=== PATIENT | female | born 1975 | race Caucasian/White ===

== ENCOUNTER 2019-06-06 16:40 | Emergency (ER) | payer MEDICAID ==
[~2019-06-06] VITALS: Ht 172.7 cm; Wt 63.6 kg
[2019-06-06 17:00] VITALS: Ht 172.7 cm; Wt 63.6 kg
[2019-06-06] MEDS ORDERED: TORADOL10 MG PO (18:48)
[2019-06-06] MEDS ORDERED: SKELAXIN800 MG PO (19:37)
[2019-06-06 19:58] VITALS: BP 154/94
== END 2019-06-06 19:59 | disposition home or self-care (01) ==
LOC: D.ER 16:40
DX: S29.012A Strain of muscle and tendon of back wall of thorax, initial encounter (principal); V49.50XA Passenger injured in collision with unspecified motor vehicles in traffic accident, initial encounter; Y93.9 Activity, unspecified; Y92.9 Unspecified place or not applicable

== ENCOUNTER → 2020-04-16 12:05 | Outpatient (CLI) | payer MEDICAID ==
[2019-06-06 17:00] VITALS: BMI 21.3
[~2020-04-16 12:05] MED LIST: SKELAXIN800 MG PO; TORADOL10 MG PO
== END | disposition home or self-care (01) ==
LOC: D.HCCECHO 04-14 13:30
PROVIDERS: ATTEND Internal Medicine Cardiovascular Disease
DX: I10 Essential (primary) hypertension (principal)

== ENCOUNTER 2020-12-25 14:51 | Inpatient (IN) | payer MEDICAID ==
[~2020-12-25] VITALS: Ht 172.7 cm; Wt 73.9 kg
[2020-12-25 15:48] LABS: BASOPHILS 0.7 % (0-2); EOSINOPHILS 0.5 % (0-7); HEMATOCRIT 37.1 % (36.0-48.0); HEMOGLOBIN 12.6 g/dL (12-16); LYMPHOCYTES 19.2 % (15-50); MCH 42.4 pg (26.0-34.0); MCHC 33.9 g/dL (31.0-37.0); MCV 125.2 fL (80.0-100.0); MEAN PLATELET VOLUME 8.1 fL (7.4-10.4); MONOCYTES 3.1 % (2-11); NEUTROPHILS 76.5 % (40-80); PLATELET COUNT 482 10x3/uL (130-400); RBC 2.97 10x6/uL (4.00-5.40); RDW 22.8 % (11.5-14.5); WBC 10.3 10x3/uL (4.8-10.8)
[2020-12-25 16:00] LABS: ALKALINE PHOSPHATASE 156 U/L (30-120); ALT (SGPT) 21 U/L (10-68); AMYLASE - SERUM 39 U/L (25-115); CALC OSMOLALITY 276 mosm/kg (275-300); CARBON DIOXIDE 24.2 mmol/L (21.0-32.0); CHLORIDE - SERUM 101 mmol/L (98-107); CREATININE - SERUM 0.7 mg/dL (0.6-1.3); GLUCOSE 115 mg/dL (74-106); LIPASE 73 U/L (73-393); PROTEIN - SERUM 6.8 g/dL (6.4-8.2); SODIUM 140 mmol/L (136-145); UREA NITROGEN 4 mg/dL (7-18); eGFR NON AFRICAN AMERICAN > 90 mL/min (90-120)
[2020-12-25 16:02] LABS: TROPONIN-I < 0.017 ng/mL (0.000-0.060)
[2020-12-25 16:03] LABS: POTASSIUM - SERUM 2.8 mmol/L (3.5-5.1)
--- NOTE | 2020-12-25 16:03 | NUR ---
LAB CALLED WITH CRITICAL POTASSIUM 2.8 , NOTIFIED
[2020-12-25 22:52] VITALS: BP 126/80
--- NOTE | 2020-12-25 23:15 | NUR ---
PT ARRIVED ON UNIT VIA STRETCHER, ESCORTED BY ER NURSE AND PT'S DAUGHTER. POSITIONED IN BED FOR COMFORT. ORIENTED TO ROOM AND CALL LIGHT. IV FLUIDS INFUSING ON ARRIVAL: D5 1/2 NS @ 100, AND ZOFRAN @ 4.7 ML/HR. WILL MONITOR FOR NEEDS.
--- NOTE | 2020-12-25 23:52 | NUR ---
COLLECTED URINE FOR ORDERED STUDIES AND DELIVERED TO LAB.
[2020-12-25 23:58] VITALS: BP 125/83; BMI 24.8
[2020-12-26 00:09] LABS: HCG URINE NEGATIVE (NEGATIVE)
--- NOTE | 2020-12-26 00:11 | NUR ---
ADMISSION ASSESSMENT AND HISTORY COMPLETE.
[2020-12-26 00:12] LABS: BILIRUBIN NEGATIVE (NEGATIVE); KETONE 1+ mg/dL (< 1+); NITRITE POSITIVE (NEGATIVE); PH 7.5 (5.0-8.0); UROBILINOGEN NORMAL mg/dL (< 2)
[2020-12-26 00:13] LABS: BACTERIA MANY HPF (<MOD); SQUAMOUS EPITHELIAL 7 HPF (0-4); WHITE CELLS - URINE 6 HPF (0-4)
--- NOTE | 2020-12-26 00:30 | NUR ---
GÉNESIS SUTHERLAND APN TO GIVE UA RESULTS. HE IS ORDERING A CULTURE AND ABX.
[2020-12-26 01:30] LABS: CKMB 13.2 U/L (0.0-3.6); CREATINE KINASE 432 UL (21-215)
[2020-12-26 01:35] LABS: TROPONIN-I < 0.017 ng/mL (0.000-0.060)
[2020-12-26 06:33] VITALS: BP 128/76
[2020-12-26 06:38] LABS: BASOPHILS 0 % (0-2); EOSINOPHILS 0.9 % (0-7); IMMATURE GRANULOCYTES 0.1 % (0-5); LYMPHOCYTE ABS# 2.85 10x3/uL (1.18-3.74); LYMPHOCYTES 36.9 % (15-50); MCH 41.8 pg (26.0-34.0); MCHC 34.4 g/dL (31.0-37.0); MEAN PLATELET VOLUME 10.1 fL (7.4-10.4); MONOCYTES 3.9 % (2-11); NEUTROPHILS 58.2 % (40-80); PLATELET COUNT 428 10x3/uL (130-400); RBC 2.39 10x6/uL (4.00-5.40); RDW 19.4 % (11.5-14.5)
[2020-12-26 06:40] LABS: HEMATOCRIT 29.1 % (36.0-48.0); MCV 121.8 fL (80.0-100.0); WBC 7.7 10x3/uL (4.8-10.8)
[2020-12-26 07:07] LABS: CREATINE KINASE 652 UL (21-215); TROPONIN-I < 0.017 ng/mL (0.000-0.060)
[2020-12-26 07:20] LABS: ALKALINE PHOSPHATASE 118 U/L (30-120); ALT (SGPT) 19 U/L (10-68); BILIRUBIN - TOTAL 0.29 mg/dL (0.2-1.3); CALC OSMOLALITY 277 mosm/kg (275-300); CALCIUM 7.9 mg/dL (8.5-10.1); CHLORIDE - SERUM 106 mmol/L (98-107); CREATININE - SERUM 0.7 mg/dL (0.6-1.3); GLUCOSE 101 mg/dL (74-106); MAGNESIUM - SERUM 1.8 mg/dL (1.8-2.4); PHOSPHOROUS 3.2 mg/dL (2.5-4.9); PROTEIN - SERUM 5.5 g/dL (6.4-8.2); SODIUM 141 mmol/L (136-145); THYROID STIMULATING HORMONE 1.57 uIU/mL (0.36-3.74); UREA NITROGEN 4 mg/dL (7-18); eGFR NON AFRICAN AMERICAN > 90 mL/min (90-120)
[2020-12-26 07:50] LABS: CARBON DIOXIDE 26.3 mmol/L (21.0-32.0)
[2020-12-26 07:52] LABS: ALBUMIN 2.6 g/dL (3.4-5.0)
[2020-12-26 09:05] VITALS: BP 130/78
--- NOTE | 2020-12-26 09:56 | NUR ---
RIGHT AC IV INFILTRATED. DID NOT WANT IT PULLED, UNABLE TO START NEW IV AFTER 2 ATTEMPTS. DOES NOT WANT ANOTHER PERSON TO TRY.. OTHER THAN THAT RESTING COMFORTABLY IN BED. DENIES FURTHER NEEDS AT THIS TIME. WILL CONTINUE POC. ASSESSMENT PERFORMED
--- NOTE | 2020-12-26 11:21 | NUR ---
FLUSHED IV IN RIGHT AC, IS STILL WORKING. HOOKED FLUIDS AND ZOFRAN DRIP BACK UP. VOMITED WHILE IN ROOM. WILL TREAT POTASSIUM PER PROTOCOL AFTER VOMITING SPELL HAS PASSED. VISITORS AT BEDSIDE. DENIES ANY NEEDS AT THIS TIME. WILL CONITNUE POC.
[2020-12-26 12:08] VITALS: BP 127/86
[2020-12-26 12:25] LABS: CKMB 30.6 U/L (0.0-3.6); CREATINE KINASE 823 UL (21-215); TROPONIN-I < 0.017 ng/mL (0.000-0.060)
--- NOTE | 2020-12-26 15:42 | NUR ---
I have reviewed this patient and I concur with the Shift Assessment completed by the Licensed Practical Nurse today this shift.
--- NOTE | 2020-12-26 16:29 | NUR ---
REPLETED POTASSIUM AGAIN PER PROTOCOL. UPRIGHT IN BED. REPLACED FLUIDS AND ZOFRAN DRIP. DENIES NEEDS. WILL CONTINUE POC.
[2020-12-26 18:10] VITALS: BP 132/69
--- NOTE | 2020-12-26 19:00 | NUR ---
BEDSIDE REPORT RECEIVED AND CARE OF PT ASSUMED. PT SITTING UP IN BED VISITING WITH FAMILY MEMBER. IV TO RIGHT AC PATENT WITH D5 1/2NS INFUSING AT 100 ML/HR, AND ZOFRAN INFUSING AT 4.7 ML/HR. TELEMETRY IN PLACE AND READING SR AT THIS ASSESSMENT. WILL MONITOR FOR NEEDS.
--- NOTE | 2020-12-26 19:47 | NUR ---
GAVE IVP PROTONIX PER ORDER. PT TEACHING ON NEW MEDICATION.
[2020-12-26 20:00] VITALS: BP 134/82
--- NOTE | 2020-12-26 20:30 | NUR ---
POTASSIUM LEVEL UP TO 3.9 WITH LAST LAB DRAW. WILL RE-CHECK WITH AM LABS.
--- NOTE | 2020-12-26 22:36 | NUR ---
GAVE MORPHINE 2 MG IVP PER PRN ORDER, PER PT REQUEST FOR ACHING ABDOMINAL AND BACK PAIN AT LEVEL 7/10. WILL MONITOR FOR EFFECTIVENESS.
[2020-12-27] VITALS: BP 127/88
[2020-12-27 04:00] VITALS: BP 120/78
[2020-12-27 07:17] LABS: BASOPHILS 0.5 % (0-2); EOSINOPHILS 1.5 % (0-7); HEMATOCRIT 27.7 % (36.0-48.0); HEMOGLOBIN 9.6 g/dL (12-16); LYMPHOCYTES 34.4 % (15-50); MCHC 34.8 g/dL (31.0-37.0); MEAN PLATELET VOLUME 8.1 fL (7.4-10.4); MONOCYTES 3.9 % (2-11); NEUTROPHILS 59.7 % (40-80); RBC 2.14 10x6/uL (4.00-5.40); RDW 22.1 % (11.5-14.5); WBC 6.3 10x3/uL (4.8-10.8)
[2020-12-27 07:26] LABS: MCV 129.3 fL (80.0-100.0); PLATELET COUNT 342 10x3/uL (130-400)
[2020-12-27 07:48] LABS: ALBUMIN 2.4 g/dL (3.4-5.0); ALKALINE PHOSPHATASE 111 U/L (30-120); BILIRUBIN - TOTAL 0.28 mg/dL (0.2-1.3); CALC OSMOLALITY 277 mosm/kg (275-300); CARBON DIOXIDE 25.2 mmol/L (21.0-32.0); CHLORIDE - SERUM 108 mmol/L (98-107); CREATININE - SERUM 0.6 mg/dL (0.6-1.3); GLUCOSE 100 mg/dL (74-106); MAGNESIUM - SERUM 1.8 mg/dL (1.8-2.4); PHOSPHOROUS 3.2 mg/dL (2.5-4.9); PROTEIN - SERUM 5.3 g/dL (6.4-8.2); SODIUM 141 mmol/L (136-145); UREA NITROGEN 3 mg/dL (7-18); eGFR NON AFRICAN AMERICAN > 90 mL/min (90-120)
[2020-12-27 07:50] LABS: ALT (SGPT) 25 U/L (10-68); CREATINE KINASE 513 UL (21-215); POTASSIUM - SERUM 3.3 mmol/L (3.5-5.1)
[2020-12-27 07:51] LABS: CKMB 14.2 U/L (0.0-3.6)
[2020-12-27 09:09] VITALS: BP 137/76
--- NOTE | 2020-12-27 11:42 | NUR ---
ASSESSMENT PER FLOW SHEET. PATIENT IS WITHOUT DISTRESS.MONITOR FOR NEEDS.CALL LIGHT IN REACH
[2020-12-27 13:30] VITALS: BP 141/79
[2020-12-27 14:17] VITALS: Ht 172.7 cm; Wt 73.9 kg
--- NOTE | 2020-12-27 14:55 | MORECARE ---
CASE MANAGEMENT DISCHARGE SUMMARY PATIENT: JILLIAN LOCKE UNIT: [id number] ADM DATE: 12/25/20 AGE: 45 : 77 SEX: F ROOM/BED: D.2223 AUTHOR: NADEEM,DOC PHYSICIAN: REFERRING PHYSICIAN: AUDREY VINCENT MD DATE OF SERVICE: 12/27/20 Case Management Discharge Planning Summary COMMENTS ENTERED DATE: 12/27/20 14:48 CT COMMENT TYPE: Discharge Planning REVIEWER: Talia Tellez CM met with patient at bedside after obtaining verbal consent. CM discussed availability / needs of home health, REHAB and medical equipment. Patient denies need for any of those services.States Dr. Regan is her pcp and she uses [facility]. Patient hopes to discharge to home today. Family is at bedside. CM to follow and assist as needed. DCP REVIEW SUMMARY ANTICIPATED D/C DATE: EXPECTED LOS : CASE STATUS: DCP Initiated INITIAL REVIEW: 12/25/2020 INITIAL REVIEWER: Talia Tellez FINAL DISCHARGE DISPOSITION: : FINAL REVIEWER: FINAL REVIEW DATE: DCP Focus Questions & Answers DCP Screen QUESTION: ANSWER High Risk Factors: : Poor health literacy DCP Evaluation QUESTION: ANSWER Patient's ability to cope with chronic illness : d. No chronic illness Would patient like to participate in any Care Coordination programs (if applicable): : Not applicable Mental health screen: : No mental health history DCP Re-evaluation QUESTION: ANSWER Would patient like to participate in any Care Coordination programs (if applicable): : Not applicable PATIENT: JILLIAN LOCKE ENCOUNTER: [id number] MEDICAL RECORD#: [id number] ADMISSION DATE: 12/25/2020 DISCHARGE DATE: ATTENDING MD: AUDREY VAZQUEZ : AGE: 45 MARITAL STATUS: M DC PLAN ID: [id number] FACILITY: [facility] PRINTED ON: 12/27/20 14:55 CT All edits/amendments must be made on the electronic document DICTATION DATE: 12/27/201454 LAP WINDER: JANENE 12/27/20 145 RPT#: [id number] DC DATE: STATUS: ADM IN [facility] [address] [place] [address] END OF REPORT
[2020-12-27 16:00] LABS: UDS - AMPHET NEGATIVE QUAL (NEGATIVE); UDS - BARB NEGATIVE QUAL (NEGATIVE); UDS - BENZO NEGATIVE QUAL (NEGATIVE); UDS - COCAINE NEGATIVE QUAL (NEGATIVE); UDS - OPIATE NEGATIVE QUAL (NEGATIVE); UDS - PCP NEGATIVE QUAL (NEGATIVE); UDS - THC POSITIVE QUAL (NEGATIVE)
[2020-12-27] MEDS ORDERED: LEVOFLOXACIN500 MG PO (16:16)
--- NOTE | 2020-12-27 16:43 | NUR ---
DISCHARGE INSTRUCTIONS,STATES UNDERSTANDING. IV DCD WITH CATH TIP INTACT.
--- NOTE | 2020-12-27 16:53 | NUR ---
LEFT UNIT VIA WHEELCHAIR FOR TRANSPORT HOME
--- NOTE | 2020-12-27 16:54 | MORECARE ---
CASE MANAGEMENT DISCHARGE SUMMARY PATIENT: JILLIAN LOCKE UNIT: [id number] ADM DATE: 12/25/20 AGE: 45 : 77 SEX: F ROOM/BED: D.2223 AUTHOR: NADEEM,DOC PHYSICIAN: REFERRING PHYSICIAN: AUDREY VINCENT MD DATE OF SERVICE: 12/27/20 Case Management Discharge Planning Summary COMMENTS ENTERED DATE: 12/27/20 14:48 CT COMMENT TYPE: Discharge Planning REVIEWER: Talia Tellez CM met with patient at bedside after obtaining verbal consent. CM discussed availability / needs of home health, REHAB and medical equipment. Patient denies need for any of those services.States Dr. Regan is her pcp and she uses [facility]. Patient hopes to discharge to home today. Family is at bedside. CM to follow and assist as needed. DCP REVIEW SUMMARY ANTICIPATED D/C DATE: EXPECTED LOS : CASE STATUS: DCP Initiated INITIAL REVIEW: 12/25/2020 INITIAL REVIEWER: Talia Tellez FINAL DISCHARGE DISPOSITION: : FINAL REVIEWER: FINAL REVIEW DATE: DCP Focus Questions & Answers DCP Screen QUESTION: ANSWER High Risk Factors: : Poor health literacy DCP Evaluation QUESTION: ANSWER Patient's ability to cope with chronic illness : d. No chronic illness Would patient like to participate in any Care Coordination programs (if applicable): : Not applicable Mental health screen: : No mental health history DCP Re-evaluation QUESTION: ANSWER Would patient like to participate in any Care Coordination programs (if applicable): : Not applicable PATIENT: JILLIAN LOCKE ENCOUNTER: [id number] MEDICAL RECORD#: [id number] ADMISSION DATE: 12/25/2020 DISCHARGE DATE: 12/27/2020 ATTENDING MD: AUDREY VAZQUEZ : AGE: 45 MARITAL STATUS: M DC PLAN ID: [id number] FACILITY: [facility] PRINTED ON: 12/27/20 16:54 CT All edits/amendments must be made on the electronic document DICTATION DATE: 12/27/201653 MANAGER OF SUPPLY CHAIN: JANENE 12/27/201653 RPT#: [id number] DC DATE:12/27/20 STATUS: DIS IN [place] [id number] [place] [address] END OF REPORT
--- NOTE | 2020-12-28 15:35 | MORECARE ---
CASE MANAGEMENT DISCHARGE SUMMARY PATIENT: JILLIAN LOCKE UNIT: [id number] ADM DATE: 12/25/20 AGE: 45 : 77 SEX: F ROOM/BED: D.2223 AUTHOR: NADEEM,DOC PHYSICIAN: REFERRING PHYSICIAN: AUDREY VINCENT MD DATE OF SERVICE: 12/28/20 Case Management Discharge Planning Summary COMMENTS ENTERED DATE: 12/27/20 14:48 CT COMMENT TYPE: Discharge Planning REVIEWER: Talia Tellez CM met with patient at bedside after obtaining verbal consent. CM discussed availability / needs of home health, REHAB and medical equipment. Patient denies need for any of those services.States Dr. Regan is her pcp and she uses [facility]. Patient hopes to discharge to home today. Family is at bedside. CM to follow and assist as needed. DCP REVIEW SUMMARY ANTICIPATED D/C DATE: EXPECTED LOS : CASE STATUS: DCP Initiated INITIAL REVIEW: 12/25/2020 INITIAL REVIEWER: Talia Tellez FINAL DISCHARGE DISPOSITION: : FINAL REVIEWER: FINAL REVIEW DATE: DCP Focus Questions & Answers DCP Screen QUESTION: ANSWER High Risk Factors: : Poor health literacy DCP Evaluation QUESTION: ANSWER Patient's ability to cope with chronic illness : d. No chronic illness Would patient like to participate in any Care Coordination programs (if applicable): : Not applicable Mental health screen: : No mental health history DCP Re-evaluation QUESTION: ANSWER Would patient like to participate in any Care Coordination programs (if applicable): : Not applicable PATIENT: JILLIAN LOCKE ENCOUNTER: [id number] MEDICAL RECORD#: [id number] ADMISSION DATE: 12/25/2020 DISCHARGE DATE: 12/27/2020 ATTENDING MD: AUDREY VAZQUEZ : AGE: 45 MARITAL STATUS: M DC PLAN ID: [id number] FACILITY: [facility] PRINTED ON: 12/28/20 15:35 CT All edits/amendments must be made on the electronic document DICTATION DATE: 12/28/201534 COMPUTER OPERATIONS ANALYST: JANENE 12/28/201534 RPT#: [id number] DC DATE:12/27/20 STATUS: DIS IN [place] [id number] [place] [address] END OF REPORT
[2020-12-28 19:08] LABS: CHLAMYDIA TRACHOMATIS, NAA Negative (Negative)
== END 2020-12-27 16:53 | disposition home or self-care (01) | DRG 394 ==
LOC: D.ER 14:51 → D.MS 18:31 → D.EDHOLD 18:31 → D.MS 21:50
PROVIDERS: Family Medicine; ADMIT Emergency Medicine; ATTEND Emergency Medicine
DX: R11.15 Cyclical vomiting syndrome unrelated to migraine (principal); N39.0 Urinary tract infection, site not specified; E87.6 Hypokalemia; R07.9 Chest pain, unspecified; D75.89 Other specified diseases of blood and blood-forming organs; I10 Essential (primary) hypertension; F17.200 Nicotine dependence, unspecified, uncomplicated; F32.9 Major depressive disorder, single episode, unspecified; F12.10 Cannabis abuse, uncomplicated

== ENCOUNTER 2020-12-28 02:07 | Emergency (ER) | payer MEDICAID ==
[~2020-12-28] VITALS: Ht 172.7 cm; Wt 74.1 kg
[~2020-12-28 02:07] MED LIST changes: +LEVOFLOXACIN500 MG PO
[2020-12-28 02:08] VITALS: Ht 172.7 cm; Wt 74.1 kg
[2020-12-28 03:01] LABS: BASOPHILS 0.4 % (0-2); EOSINOPHILS 0.9 % (0-7); HEMATOCRIT 29.4 % (36.0-48.0); HEMOGLOBIN 10.1 g/dL (12-16); LYMPHOCYTES 24.3 % (15-50); MCH 44.3 pg (26.0-34.0); MCHC 34.5 g/dL (31.0-37.0); MCV 128.6 fL (80.0-100.0); MEAN PLATELET VOLUME 8.8 fL (7.4-10.4); MONOCYTES 3.9 % (2-11); NEUTROPHILS 70.5 % (40-80); PLATELET COUNT 331 10x3/uL (130-400); RBC 2.29 10x6/uL (4.00-5.40); RDW 21.9 % (11.5-14.5); WBC 7.8 10x3/uL (4.8-10.8)
[2020-12-28 03:03] LABS: APTT 29.8 SECONDS (22.8-39.4); CALC OSMOLALITY 276 mosm/kg (275-300); CALCIUM 8.4 mg/dL (8.5-10.1); CARBON DIOXIDE 24.9 mmol/L (21.0-32.0); CHLORIDE - SERUM 106 mmol/L (98-107); CREATININE - SERUM 0.6 mg/dL (0.6-1.3); GLUCOSE 111 mg/dL (74-106); INR 1.19 (0.85-1.17); SODIUM 140 mmol/L (136-145); UREA NITROGEN 3 mg/dL (7-18); eGFR NON AFRICAN AMERICAN > 90 mL/min (90-120)
[2020-12-28 03:04] LABS: POTASSIUM - SERUM 4.4 mmol/L (3.5-5.1)
[2020-12-28 03:18] LABS: ALBUMIN 2.6 g/dL (3.4-5.0); ALKALINE PHOSPHATASE 124 U/L (30-120); BILIRUBIN - TOTAL 0.42 mg/dL (0.2-1.3); CKMB 13.1 U/L (0.0-3.6); CREATINE KINASE 506 UL (21-215); MAGNESIUM - SERUM 1.7 mg/dL (1.8-2.4); PROTEIN - SERUM 5.9 g/dL (6.4-8.2); TROPONIN-I < 0.017 ng/mL (0.000-0.060)
[2020-12-28 03:19] LABS: ALT (SGPT) 37 U/L (10-68)
[2020-12-28 04:10] VITALS: BP 135/84
== END 2020-12-28 04:11 | disposition home or self-care (01) ==
LOC: D.ER 02:07
PROVIDERS: Family Medicine
DX: R07.89 Other chest pain (principal)

== ENCOUNTER 2020-12-31 14:30 | Emergency (ER) | payer MEDICAID ==
[~2020-12-31] VITALS: Ht 172.7 cm; Wt 74.5 kg
[2020-12-31 14:45] VITALS: BP 132/81; Ht 172.7 cm; Wt 74.5 kg
[2020-12-31] MEDS ORDERED: AMOXICILLIN500 M1 PO (14:49)
[2020-12-31] MEDS ORDERED: AMITRIPTYLINE100 MG PO (14:49)
[2020-12-31 15:07] LABS: BASOPHILS 0.5 % (0-2); EOSINOPHILS 1.2 % (0-7); HEMATOCRIT 34.1 % (36.0-48.0); HEMOGLOBIN 11.5 g/dL (12-16); LYMPHOCYTES 27.9 % (15-50); MCH 42.5 pg (26.0-34.0); MCHC 33.6 g/dL (31.0-37.0); MCV 126.5 fL (80.0-100.0); MEAN PLATELET VOLUME 8.2 fL (7.4-10.4); MONOCYTES 4.3 % (2-11); NEUTROPHILS 66.1 % (40-80); PLATELET COUNT 367 10x3/uL (130-400); RDW 21.8 % (11.5-14.5); WBC 7.1 10x3/uL (4.8-10.8)
[2020-12-31 15:15] LABS: CALC OSMOLALITY 279 mosm/kg (275-300); CALCIUM 9.2 mg/dL (8.5-10.1); CARBON DIOXIDE 27.5 mmol/L (21.0-32.0); CHLORIDE - SERUM 102 mmol/L (98-107); CREATININE - SERUM 0.7 mg/dL (0.6-1.3); GLUCOSE 100 mg/dL (74-106); POTASSIUM - SERUM 3.4 mmol/L (3.5-5.1); SODIUM 141 mmol/L (136-145); UREA NITROGEN 9 mg/dL (7-18); eGFR NON AFRICAN AMERICAN > 90 mL/min (90-120)
[2020-12-31 15:32] LABS: ALBUMIN 3.2 g/dL (3.4-5.0); ALKALINE PHOSPHATASE 125 U/L (30-120); ALT (SGPT) 39 U/L (10-68); BILIRUBIN - TOTAL 0.61 mg/dL (0.2-1.3); CKMB 2.5 U/L (0.0-3.6); CREATINE KINASE 96 UL (21-215); PROTEIN - SERUM 6.8 g/dL (6.4-8.2)
[2020-12-31 15:37] LABS: TROPONIN-I < 0.017 ng/mL (0.000-0.060)
[2020-12-31 16:14] LABS: T4 THYROXINE 10.2 ug/dL (4.7-13.3)
[2020-12-31 17:22] LABS: THYROID STIMULATING HORMONE 2.41 uIU/mL (0.36-3.74)
[2021-01-04 03:07] LABS: RMSF IGM 2.92 index (0.00-0.89)
== END 2020-12-31 18:41 | disposition home or self-care (01) ==
LOC: D.ER 14:30
PROVIDERS: Family Medicine
DX: R20.0 Anesthesia of skin (principal); I48.91 Unspecified atrial fibrillation